=== PATIENT | female | born 1970 | race Caucasian/White ===

== ENCOUNTER → 2016-06-17 | Outpatient (CLI) | payer BC ==
[~2016-06-17] MED LIST: ASCA500 PO; HYDR-5688 PO; NAPR1TAB9 PO; ONDA4TAB10 SL; ONDA4TAB46 PO; PANT40TA PO; PHEN-582 PO; VITACAP26 PO
--- NOTE | 2016-06-21 16:24 | MAMMOGRAPHY REPORT ---
THIS REPORT HAS BEEN AMENDED. BILATERAL DIGITAL SCREENING MAMMOGRAM TOMOSYNTHESIS WITH CAD: 06/17/2016 CLINICAL HISTORY: Patient presents for routine screening. S/P bilateral augmentation. TECHNIQUE: Bilateral CC and MLO views of the breasts with and without implant displacement views we re obtained. Tomosynthesis was also performed on the implant displaced views. Current study was al so evaluated with a Computer Aided Detection (CAD) system. COMPARISON: No prior exams were available for comparison. BREAST COMPOSITION: The tissue of both breasts is heterogeneously dense, which may obscure small ma sses. FINDINGS: Bilateral subpectoral saline implants are intact. No suspicious mass, architectural dist ortion or cluster of microcalcifications is seen. IMPRESSION: ACR BI-RADS CATEGORY 1: NEGATIVE There is no mammographic evidence of malignancy. Prior outside mammograms are being requested and i f obtained they will be reviewed, compared to the current exam to assess for any more subtle changes , and an addendum will be made to this report. Otherwise, a 1 year screening mammogram is recommend ed. The patient will receive written notification of the results. Approximately 10% of breast cancers are not detected with mammography. A negative mammographic repor t should not delay biopsy if a clinically suggestive mass is present. Zahra Delgado M.D. ay/:06/21/2016 15:52:32 Access Services Assistant: Tia AMEZQUITA)(Angélica), [facility] letter sent: Normal 03/15 BI-RADS Code: ACR BI-RADS Category 1: Negative AMENDMENT: 06/23/2016 Zahra Delgado M.D. A prior outside mammogram dated 12/15/2011 from [facility] imaging centers became available for re view. Bilateral subpectoral implants remain in place. There has been no significant interval young e comparing to the prior outside mammogram. No new suspicious mass, architectural distortion or melissa picious cluster of microcalcifications is seen. Recommend follow-up in 1 year for next annual scree paul mammogram. Amended BI-RADS: ACR BI-RADS Category 2: Benign letter sent: Normal 03/15
== END | disposition home or self-care (01) ==
LOC: C.MAMM 07:27
PROVIDERS: ATTEND Nurse Practitioner Family
DX: Z12.31 Encounter for screening mammogram for malignant neoplasm of breast (principal)

== ENCOUNTER → 2017-02-02 | Day surgery (SDC) | payer BC ==
[~2017-02-02] VITALS: Ht 157.5 cm; Wt 51.4 kg
[~2017-02-02] MED LIST changes: +ACETAMINOPHEN 325 MG TAB PO PRN; +ATROPINE SULFATE 0.1 MG/ML 5ML SYR IV PRN; +BACITRACIN OINT 15 GM TUBE ONE; +BUPIVACAINE 0.5 % 5 MG/1 ML MPF 30ML VIAL ONE; +CEFAZOLIN 2000MG IV PUSH 10 ML IV SCH; +CEFAZOLIN SOD 2000MG/10 ML IV PUSH IV ONE; +D5W AND 1/2NSS + 20MEQ KCL 1,000 ML IV SCH; +DEXAMETHASONE SOD INJ 4 MG/ML VIAL ONE; +EpHEDrine SULFATE INJ 50 MG/ML AMP IV PRN; +FENTANYL CITRATE INJ 50 MCG/1 ML 2 ML VIAL IV PRN; +FENTANYL CITRATE INJ 50 MCG/1 ML 2 ML VIAL ONE; +GLYCOPYRROLATE INJ 0.2 MG/ML VIAL ONE; +HYDROmorphone INJ 1 MG/ML SYR IV PRN; +KETOROLAC TROMETHAMINE 30 MG/ML VIAL ONE; +LABETALOL HCL IV 5 MG/ML 20ML IV PRN; +LACTATED RINGER'S 1000ML 1,000 ML IV SCH; +LIDOCAINE HCL 1% 20 ML VIAL ONE; +LIDOCAINE HCL 2% 2 ML VIAL (20MG/ML) ONE; +MEPERIDINE HCL 25 MG/ML CARP IV PRN; +MIDAZOLAM HCL 1 MG/ML 2ML VIAL ONE; +NEOSTIGMINE METHYLSULFATE 5 MG/5 ML SYR ONE; -ONDA4TAB10 SL; +ONDANSETRON INJ 2 MG/ML 2 ML VIAL IV PRN; +ONDANSETRON INJ 2 MG/ML 2 ML VIAL ONE; +OXYCODONE/ACETAMINOPHEN 5-325 TAB PO PRN; -PHEN-582 PO; +PROPOFOL IV EMULSION 10 MG/ML 20 ML VIAL IV ONE; +ROCURONIUM BROMIDE 10 MG/ML 5 ML VIAL IV ONE; -VITACAP26 PO
[2017-02-02 10:56] VITALS: BP 109/67; PULSE 86; TEMP 37; O2SAT 100; Ht 157.5 cm; Wt 51.4 kg
--- NOTE | 2017-02-02 11:56 | History & Physical Bridge Note ---
H&P Re-Evaluation Bridge Note: I have examined the patient, reviewed the History & Physical and in the interval since the performance of the History & Physical I have noted the following changes of clinical significance: No changes noted
--- NOTE | 2017-02-02 14:33 | [facility] Post Operative Brief Note ---
Immediate Operative Summary Operative Date Feb 02, 2017. Pre-Operative Diagnosis Cholelithiasis, Chronic Cholecystitis Post-Operative Diagnosis Cholelithiasis, Chronic Cholecystitis Procedure(s) Performed Laparoscopic Cholecystectomy Surgeon Dr. Ping Parsons [employer] Surgeon(s) None Estimated Blood Loss 10ml Findings chronic cholecystitis, cholelithiasis Fluids (cc crystalloids) 1300ml Specimens Permanent specimens A: Gallbladder and contents Drains none Anesthesia general Complication(s) None Disposition Recovery Room / PACU
--- NOTE | 2017-02-02 14:38 | Discharge Instructions ---
Discharge Instructions Date of Service Feb 02, 2017. Visit Reason for Visit: Sludge, Gallstone Discharge Discharge Diagnosis / Problem: S/P laparoscopic cholecystectomy Discharge Goals Goal(s): Decrease discomfort, Improve function Activity Recommendations Activity Limitations: per Instructions/Follow-up section Lifting Limitations: no more than 25 pounds Exercise/Sports Limitations: rest today May Resume Sexual Activity: when tolerated Shower/Bathe: may shower/bathe in 3 days Driving or Machine Use: resume 3 days after discharge Anesthesia . Post Anesthesia Instructions: If you have had General Anesthesia or IV Sedation: * Do not drive today. * Resume driving when surgeon permits. * Do not make important decisions or sign legal documents today. * Call surgeon for: 1. Temperature elevations greater than 101 degrees F. 2. Uncontrollable pain. 3. Excessive bleeding. 4. Persistent nausea and vomiting. 5. Medication intolerance (nausea, vomiting or rash). * For nausea and vomiting use only clear liquids such as: tea, soda, bouillon until nausea subsides, then gradually increase diet as tolerated. * If you have any concerns or questions, call your surgeon's office. If physician is unavailable and it is an emergency, call 911 or go to the nearest emergency room. . Diet Recommendations Recommended Home Diet: resume previous diet Procedures Procedures Performed: Laparoscopic Cholecystectomy Pending Studies Studies pending at discharge: no Medical Emergencies . Who to Call and When: Medical Emergencies: If at any time you feel your situation is an emergency, please call 911 immediately. . Non-Emergent Contact Non-Emergency issues call your: Surgeon Call Non-Emergent contact if: you have a fever, temperature is above 100.5, your pain is not controlled, your pain is worsening, wound has increased drainage, wound has increased redness . . "Provider Documentation" section prepared by Ping Parsons. . [place] Drug Monitoring Program Search Results: no issues identified
--- NOTE | 2017-02-02 15:03 | Anesthesiology Progress Note ---
Anesthesia Post Op Note Date & Time Feb 02, 2017 at 15:03 Vital Signs Pain Intensity: 0 Vital Signs Past 12 Hours Date Time Temp Pulse Resp B/P (MAP) Pulse Ox O2 Delivery O2 Flow Rate FiO2 02/02/17 14:55 80 16 99/58 100 Oxymask 10 02/02/17 14:45 87 13 102/59 100 Oxymask 10 02/02/17 14:36 36.4 78 15 103/61 100 Oxymask 10 02/02/17 10:56 37 86 18 109/67 (81) 100 Room Air Notes Mental Status: alert / awake / arousable, participated in evaluation Pt Amnestic to Procedure: Yes Nausea / Vomiting: adequately controlled Pain: adequately controlled Airway Patency, RR, SpO2: stable & adequate BP & HR: stable & adequate Hydration State: stable & adequate Anesthetic Complications: no major complications apparent
--- NOTE | 2017-02-02 15:13 | OPERATIVE REPORT ---
DATE OF OPERATION: 02/02/2017 PREOPERATIVE DIAGNOSES: Chronic cholecystitis, cholelithiasis. POSTOPERATIVE DIAGNOSES: Same. OPERATION: Laparoscopic cholecystectomy. SURGEON: Ping Parsons M.D. URINE OUTPUT: None. ANESTHESIA: General. ESTIMATED BLOOD LOSS: About 10 mL. IV FLUIDS: 1300 mL. FINDINGS: The OR findings are chronic cholecystitis and cholelithiasis. INDICATIONS FOR THE PROCEDURE: This is a 46-year-old female who presented with symptomatic chronic cholecystitis and cholelithiasis. The patient will be required to do laparoscopic cholecystectomy, possible open, possible cholangiogram. I did talk to the patient about the benefit and risk, alternate procedure. I indicated the risks may include but not limited such as bleeding, infection, injury to common bile duct, injury to bowel, bile leak, may need ERCP, incisional hernia, DVT. The patient understands. She signed informed consent. I answered all questions. DETAILS OF PROCEDURE: We brought the patient to the OR and put the patient in the supine position. The patient received SCDs on bilateral legs to prevent DVT. Also, the patient received 2 grams Ancef IV for prophylactic antibiotic. The patient received general anesthesia without difficulty. The abdomen was prepped and draped in routine sterile fashion. After a timeout, I injected local anesthesia by using 1% lidocaine mixed with 0.5% Marcaine just above the umbilical. Then I made a small incision just above umbilical, opened fascia and opened peritoneum under direct vision. I put a Inessa trocar in, connected to CO2 to create pneumoperitoneum. Flow rate is 6 liter per minute. Pressure not more than 14 mmHg. Once we get a nice pneumoperitoneum, we put a camera in looked around the abdomen shows no more findings in the stomach, small bowel, large bowel, liver; however, significant omentum covering the gallbladder showing a chronic cholecystitis, gallbladder wall thickening, edema. Then, we put another 3.5 mm trocar on the right upper quadrant. Once all trocars in, we put grasper in to hold the base of the gallbladder, put direction to the diaphragm and put another grasper in to hold the pouch of the gallbladder, put latter to expose the triangle of Calot. The cystic duct was identified and mobilized. I put two 10 mm metal clips on the proximal cystic duct, one on the distal cystic used scissors transect the cystic duct. Cystic duct tear was identified and mobilized. I put two 5 mm metal clips on the proximal cystic artery and one on the distal cystic artery and used scissors to transect the cystic artery. Then I used Bovie to take down the gallbladder through the liver bed without difficulty. Rechecked no active bleeding, no bile leak and then we removed the gallbladder through the catch bag and then we reinserted Inessa trocar in and connected CO2 to create pneumoperitoneum, again we looked around the abdomen showing no more findings on the liver, no active bleeding from the liver bed, no bile leak from the liver bed. Then we removed all trocars under direct vision. No active bleeding from trocar sites. The pneumoperitoneum was released. Then I closed the umbilical incision, fascial layer [id number] x2 by using #1 Vicryl and closed subcutaneous layer by using 2-0 Vicryl interrupted and closed skin by using 4-0 Vicryl continuous running. Then, we closed another 3.5 mm trocar site skin only by using 4-0 Vicryl. Then we put the dressing on. The patient tolerated the procedure well. All instrument, needle and sponge count correct x2 at the end of case. The patient transferred to recovery room in stable condition. The specimen sent to pathology. After the procedure, I did talk to the patient's about the OR findings and procedure we did, he understood. I also gave them the postop care instruction and they understand. I attest to the content of the Intraoperative Record and any orders documented therein. Any exception s are noted below.
[2017-02-02 15:20] VITALS: BP 107/51; PULSE 65; TEMP 36.9; O2SAT 100
[2017-02-02 15:50] VITALS: BP 103/60; PULSE 80; O2SAT 100
[2017-02-02 16:20] VITALS: BP 101/60; PULSE 83; TEMP 36.6; O2SAT 97
[2017-02-02 17:15] VITALS: BP 104/59; PULSE 85; TEMP 36.6; O2SAT 99
== END | disposition home or self-care (01) ==
LOC: C.ACU 10:40
PROVIDERS: ATTEND Surgery
DX: K82.4 Cholesterolosis of gallbladder (principal); K81.1 Chronic cholecystitis; R10.11 Right upper quadrant pain